=== PATIENT | female | born 1980 | race Caucasian/White ===

== ENCOUNTER 2022-08-10 23:46 | Emergency (ER) | payer OTHER ==
[~2022-08-10] VITALS: Ht 162.6 cm; Wt 69.0 kg
[2022-08-10 23:48] VITALS: O2SAT 98
[2022-08-11 00:25] LABS: HEMATOCRIT 31.1 % (36.0-48.0); HEMOGLOBIN 9.8 g/dL (12.0-16.0); MEAN CORPUSCULAR HEMOGLOBIN 25.1 pg (28.0-32.0); MEAN CORPUSCULAR VOLUME 79.3 fL (81.0-99.0); PLATELET 208 x1000/uL (130-400); RED BLOOD CELL COUNT 3.92 mill/uL (4.2-5.4)
[2022-08-11 00:27] LABS: CHLORIDE 103 mEq/L (98-107)
[2022-08-11 00:40] LABS: HCG SCREEN NEGATIVE
[2022-08-11 01:43] LABS: CLARITY URINE CLOUDY (CLEAR); COLOR URINE YELLOW (YELLOW); KETONES URINE NEGATIVE (NEGATIVE); LEUKOCYTE ESTERASE URINE NEGATIVE (NEGATIVE); NITRITE URINE NEGATIVE (NEGATIVE); OCCULT BLOOD URINE NEGATIVE (NEGATIVE); PROTEIN URINE NEGATIVE (NEGATIVE); SPECIFIC GRAVITY URINE 1.013 (1.005-1.030)
[2022-08-11] MEDS ORDERED: KETOROLAC 30MG/ML VIAL IM NR (02:00)
[2022-08-11] MEDS ORDERED: METR375C2 MT (05:40)
[2022-08-11] MEDS ORDERED: DOCU-138 MT (05:40)
[2022-08-11] MEDS ORDERED: IBUP-2029 MT (05:40)
[2022-08-11] MEDS ORDERED: CIPR-263 MT (05:40)
[2022-08-11] MEDS ORDERED: ACETAMINOPHEN 325MG TABLET PO ONE (13:00)
[2022-08-11] MEDS ORDERED: LORAZEPAM 0.5MG TABLET PO ONE ×2 (13:15→17:45)
[2022-08-11 22:46] VITALS: BP 109/81; PULSE 88; RESP 16; TEMP 99.5
== END 2022-08-11 22:46 | disposition home or self-care (01) ==
LOC: ER 23:46
DX: R10.32 Left lower quadrant pain (principal)
CPT/HCPCS: 99285; 74176; 76830; 76856; 80053; 81003; 84703; 85027; 36415; 96372; J1885